=== PATIENT | male | born 1960 | race Caucasian/White ===

== ENCOUNTER → 2017-01-19 | Outpatient (REF) | payer OTHER ==
[~2017-01-19] MED LIST: /METH500TA PO; /TAMS4CA OR; /TAMS4CA PO; AMPI500C PO; ASPI81TA3 OR; ASPI81TA85 PO; AUGM875T27 PO; CIPR500T4 OR; COLA100C2 OR; FISH1000 PO; FLAG500T OR; Hydrochlorothiazide OR; LIPI20TA OR; LISI10TA4 OR; METOPROLOL PO; MILKSUS OR; MULTIVIT OR; OMEP20CA3 PO; PERC7.5T12 PO; PLAV75TA2 OR; PRAV40TA2 PO; Potassium Chloride OR; Prilosec OR; TOPR25TA PO; TYLE325T5 PO; Wellbutrin OR; ZEST20TA8 PO
== END ==
LOC: M LAB REF 12:45
PROVIDERS: ATTEND Internal Medicine
DX: Z51.81 Encounter for therapeutic drug level monitoring (principal); Z79.899 Other long term (current) drug therapy

== ENCOUNTER 2017-05-13 18:21 | Emergency (ER) | payer BC, OTHER ==
[2017-05-13] MEDS: ACETAMINOPHEN TAB 650MG DOSE (2X325MG) PO (20:15)
[2017-05-13 20:37] LABS: BASO % 0.4 % (0.0-1.0); EOS # 0.1 10^3/uL (0.0-0.50); EOS % 2.3 % (0.0-3.0); HEMATOCRIT 42.5 % (42.0-52.0); HEMOGLOBIN 14.5 g/dl (14.0-18.0); IMMATURE GRANULOCYTE % 0.6 % (0-0); MEAN CORPUSCULAR HEMOGLOBIN 30.9 pg (27.0-33.0); MEAN CORPUSCULAR HGB CONC 34.1 g/dl (32.0-36.5); MEAN CORPUSCULAR VOLUME 90.6 fl (80.0-96.0); MONO % 17.9 % (0.0-5.0); NEUTROPHILS # 3.2 10^3/uL (1.8-7.7); NEUTROPHILS % 59.8 % (36.0-66.0); PLATELET COUNT, AUTOMATED 189 10^3/uL (150-450); RED BLOOD COUNT 4.69 10^6/uL (4.30-6.10); RED CELL DISTRIBUTION WIDTH 12.7 % (11.5-14.5); WHITE BLOOD COUNT 5.3 10^3/uL (4.0-10.0)
[2017-05-13 20:52] LABS: INR 1.04; PROTHROMBIN TIME 13.7 SECONDS (12.4-14.5)
[2017-05-13 20:53] LABS: PARTIAL THROMBOPLASTIN TIME 26.3 SECONDS (26.8-37.9)
[2017-05-13 20:56] LABS: ANION GAP 4 MEQ/L (8-16); BLOOD UREA NITROGEN 15 MG/DL (7-18); CALCIUM LEVEL 8.8 MG/DL (8.5-10.1); CARBON DIOXIDE LEVEL 29 MEQ/L (21-32); CHLORIDE LEVEL 107 MEQ/L (98-107); GLOMERULAR FILTRATION RATE > 60.0 (>56); GLUCOSE, FASTING 97 MG/DL (70-100); POTASSIUM SERUM 4.4 MEQ/L (3.5-5.1); SODIUM LEVEL 140 MEQ/L (136-145)
== END 2017-05-13 22:29 | disposition home or self-care (01) ==
LOC: M ED 18:21
DX: S05.11XA Contusion of eyeball and orbital tissues, right eye, initial encounter (principal); X58.XXXA Exposure to other specified factors, initial encounter; Y92.89 Other specified places as the place of occurrence of the external cause; Z79.899 Other long term (current) drug therapy; Z79.2 Long term (current) use of antibiotics; Z86.79 Personal history of other diseases of the circulatory system
CPT/HCPCS: 70450

== ENCOUNTER 2017-05-22 08:14 | Emergency (ER) | payer BC, OTHER ==
[2017-05-22 08:53] LABS: BASO # 0.1 10^3/uL (0.0-0.2); BASO % 0.4 % (0.0-1.0); EOS % 0.3 % (0.0-3.0); HEMATOCRIT 42.8 % (42.0-52.0); HEMOGLOBIN 14.8 g/dl (14.0-18.0); IMMATURE GRANULOCYTE # 0.1 10^3/uL (0-0); LYMPH % 7.9 % (24.0-44.0); MEAN CORPUSCULAR HGB CONC 34.6 g/dl (32.0-36.5); MEAN CORPUSCULAR VOLUME 89.7 fl (80.0-96.0); MONO # 0.8 10^3/uL (0.0-0.8); MONO % 6.2 % (0.0-5.0); NEUTROPHILS # 10.3 10^3/uL (1.8-7.7); NEUTROPHILS % 84.2 % (36.0-66.0); PLATELET COUNT, AUTOMATED 189 10^3/uL (150-450); RED BLOOD COUNT 4.77 10^6/uL (4.30-6.10); RED CELL DISTRIBUTION WIDTH 12.5 % (11.5-14.5); WHITE BLOOD COUNT 12.3 10^3/uL (4.0-10.0)
[2017-05-22] MEDS: ONDANSETRON 4MG/2ML VIAL (J2405) IV (09:21)
[2017-05-22] MEDS: MORPHINE 4 MG/ML 1ML VIAL IV (09:22)
[2017-05-22] MEDS: NS 500 ML IV ×2 (09:22→10:14)
[2017-05-22 09:38] LABS: ALBUMIN 4.2 GM/DL (3.2-5.2); ALBUMIN/GLOBULIN RATIO 1.56 (1.00-1.93); ALKALINE PHOSPHATASE 99 U/L (45-117); ALT/SGPT 44 U/L (12-78); ANION GAP 6 MEQ/L (8-16); AST/SGOT 25 U/L (7-37); BILIRUBIN,DIRECT 0.1 MG/DL (0.0-0.2); BILIRUBIN,TOTAL 0.3 MG/DL (0.2-1.0); BLOOD UREA NITROGEN 19 MG/DL (7-18); CALCIUM LEVEL 8.7 MG/DL (8.5-10.1); CARBON DIOXIDE LEVEL 28 MEQ/L (21-32); CHLORIDE LEVEL 107 MEQ/L (98-107); CPK CREATINE PHOSPHOKINASE 231 U/L (39-308); GLOMERULAR FILTRATION RATE 51.4 (>56); GLUCOSE, FASTING 152 MG/DL (70-100); LIPASE 70 U/L (73-393); MB/CK RELATIVE INDEX 1.73 (< OR =4); POTASSIUM SERUM 4.6 MEQ/L (3.5-5.1); SODIUM LEVEL 141 MEQ/L (136-145); TOTAL PROTEIN 6.9 GM/DL (6.4-8.2); TROPONIN I < 0.02 NG/ML (< 0.10)
[2017-05-22] MEDS ORDERED: fentaNYL 100 MCG/2 ML INJECTION (J3010) As Ordered (09:38)
[2017-05-22] MEDS ORDERED: ISOVUE-370 76% 100ML VIAL (Q9967) As Ordered (09:39)
[2017-05-22] MEDS: fentaNYL 100 MCG/2 ML INJECTION (J3010) IV (09:45)
[2017-05-22 10:08] LABS: LACTIC ACID SEPSIS PROTOCOL 2.3 MMOL/L (0.4-2.0)
[2017-05-22 10:39] LABS: KETONE, URINE AUTO RFX TRACE mg/dL (NEGATIVE); LEUKOCYTE ESTERASE UR AUTO RFX NEGATIVE (NEGATIVE); MUCUS, URINE RFX SMALL (NEGATIVE); NITRITE, URINE AUTO RFX NEGATIVE (NEGATIVE); RBC, URINE AUTO RFX 45 /HPF (0-3); SPECIFIC GRAVITY UR AUTO RFX 1.028 (1.002-1.035); SQUAM EPITHELIAL CELL UR AURFX 0 /HPF (0-6); WBC, URINE AUTO RFX 0 /HPF (0-3)
[2017-05-22] MEDS: KETOROLAC 30 MG/ML VIAL (J1885) IV (11:22)
== END 2017-05-22 13:26 | disposition home or self-care (01) ==
LOC: M ED 08:14
DX: N20.0 Calculus of kidney (principal); S37.009A Unspecified injury of unspecified kidney, initial encounter; X58.XXXA Exposure to other specified factors, initial encounter; Y92.89 Other specified places as the place of occurrence of the external cause; I51.9 Heart disease, unspecified; Z87.442 Personal history of urinary calculi; Z87.19 Personal history of other diseases of the digestive system; Z98.890 Other specified postprocedural states
CPT/HCPCS: J2405

== ENCOUNTER 2018-12-05 07:40 | Emergency (ER) | payer OTHER, BC ==
[~2018-12-05] VITALS: Ht 170.2 cm; Wt 86.4 kg
[~2018-12-05 07:40] MED LIST changes: -/METH500TA PO; -/TAMS4CA OR; -/TAMS4CA PO; +FLOM0.4C39 OR; +FLOM0.4C39 PO; +METH1TAB40 PO; +METO-1 PO; +PERC5TAB12 PO; -TOPR25TA PO
[2018-12-05] MEDS ORDERED: ELIQ5TAB PO (07:56)
[2018-12-05] MEDS ORDERED: METO1TAB33 PO (07:56)
[2018-12-05] MEDS ORDERED: MONT10TA2 PO (07:56)
[2018-12-05] MEDS ORDERED: GABA-1171 (07:56)
[2018-12-05] MEDS ORDERED: LOSA100T50 PO (07:56)
[2018-12-05] MEDS ORDERED: HYDR12.55 PO (07:56)
[2018-12-05] MEDS ORDERED: BUPR300T34 PO (07:56)
--- NOTE | 2018-12-05 08:46 | REP ---
Left forearm two views: There is no fracture or dislocation. There are calcifications in the soft tissues posteriorly to the distal humerus. These could represent foreign bodies, calcific tendonitis or calcific bursitis. The There is soft tissue edema posterior to the distal humerus which could be post-traumatic, bursitis or inflammatory. Electronically Signed by Ajay Shea MD 12/05/2018 08:37 A
--- NOTE | 2018-12-05 08:59 | REP ---
LEFT HUMERUS: 12/05/2018. Clinical history: Trauma. Two-views show the shaft of the humerus intact. There is some degenerative changes in the inferior aspect of the AC joint. There is no subluxation or dislocation of the humeral head. Visualized elbow grossly intact. No radiopaque foreign body. Impression: 1. No fracture or other acute bony finding about the humerus. 2. AC joint arthritis noted. Electronically Signed by Prince Barrientos MD 12/05/2018 09:07 A
[2018-12-05] MEDS ORDERED: ACETAMINOPHEN 500 MG TAB PO ONE (09:15)
--- NOTE | 2018-12-05 09:34 | REP ---
Left elbow for views: The lateral view is oblique. There is no fracture or dislocation on the views presented. There are calcifications in the soft tissues posteriorly. I suspect there is edema in the soft tissues posteriorly. These findings are nonspecific and could represent bursitis or post-traumatic edema. Impression: Post traumatic edema versus bursitis posteriorly. No fracture or dislocation. Lateral view is oblique. Electronically Signed by Ajay Shea MD 12/05/2018 09:25 A
[2018-12-05] MEDS ORDERED: MORPHINE 4 MG/ML 1ML VIAL/SYRINGE (J2270) IM ONE (10:15)
[2018-12-05 10:34] LABS: HEMATOCRIT 40.2 % (42.0-52.0); HEMOGLOBIN 13.6 g/dl (13.5-17.5); MEAN CORPUSCULAR HEMOGLOBIN 30.6 pg (27.0-33.0); MEAN CORPUSCULAR HGB CONC 33.8 g/dl (32.0-36.5); MEAN CORPUSCULAR VOLUME 90.3 fl (80.0-96.0); PLATELET COUNT, AUTOMATED 205 10^3/uL (150-450); RED BLOOD COUNT 4.45 10^6/uL (4.30-6.10); WHITE BLOOD COUNT 9.6 10^3/uL (4.0-10.0)
--- NOTE | 2018-12-05 10:48 | REP ---
DEEP VENOUS ULTRASOUND LEFT UPPER EXTREMITY: REASON: Pain and swelling. TECHNIQUE: Multiple ultrasonographic images of the deep venous structures of the left upper extremity were obtained to rule out deep venous thrombosis. FINDINGS: There is no abnormal echogenic material seen in any of the visualized deep venous structures of the left upper extremity. Coaptation where applicable is appropriate throughout. Augmentation shows an expected response throughout. IMPRESSION: Negative exam. Electronically Signed by Brayden Coughlin DO 12/05/2018 12:38 P
[2018-12-05 10:49] LABS: INR 1.17; PROTHROMBIN TIME 14.6 SECONDS (11.8-14.0)
[2018-12-05 11:00] LABS: BLOOD UREA NITROGEN 20 MG/DL (7-18); CALCIUM LEVEL 8.8 MG/DL (8.5-10.1); CARBON DIOXIDE LEVEL 29 MEQ/L (21-32); CHLORIDE LEVEL 105 MEQ/L (98-107); CREATININE FOR GFR 1.22 MG/DL (0.70-1.30); GLOMERULAR FILTRATION RATE > 60.0 (>56); GLUCOSE, FASTING 102 MG/DL (70-100); POTASSIUM SERUM 4.6 MEQ/L (3.5-5.1); SODIUM LEVEL 139 MEQ/L (136-145)
[2018-12-05] MEDS ORDERED: ONDANSETRON 4 MG ORAL DISINTEGRATING TAB (Q0162 PER 1MG) PO ONE (11:00)
[2018-12-05] MEDS ORDERED: PERC5TAB12 PO (12:07)
[2018-12-05 12:08] VITALS: BP 113/82
[2018-12-20] MEDS ORDERED: TRAM50TA2 PO (08:31)
[2018-12-20] MEDS ORDERED: ASPI81TA85 PO (08:31)
[2018-12-20] MEDS ORDERED: ACET1TAB16 PO (08:31)
[2018-12-20] MEDS ORDERED: MULTCAP PO (08:31)
[2018-12-20] MEDS ORDERED: TIZA4TAB4 PO (08:31)
[2018-12-20] MEDS ORDERED: OMEP20CA4 PO (08:44)
== END 2018-12-05 12:16 | disposition home or self-care (01) ==
LOC: M ED 07:40
DX: S50.02XA Contusion of left elbow, initial encounter (principal); W19.XXXA Unspecified fall, initial encounter; Y92.149 Unspecified place in prison as the place of occurrence of the external cause; Y93.89 Activity, other specified; Y99.0 Civilian activity done for income or pay
CPT/HCPCS: 36415; 73060; 73080; 73090; 80048; 82550; 85027; 85610; 93971; 96372; 99284; J2270; Q0162

== ENCOUNTER → 2018-12-10 | Outpatient (CLI) | payer OTHER, BC ==
[~2018-12-10] MED LIST changes: +ACET1TAB16 PO; +BUPR300T92 PO; +ELIQ5TAB PO; +ENOX40IN3 SC; +GABA-1171; +HYDR12.55 PO; +LOSA100T50 PO; +METO1TAB33 PO; +MONT10TA2 PO; +MULTCAP PO; +OMEP1CAP73 PO; +TIZA4TAB4 PO; +TRAM50TA2 PO
--- NOTE | 2018-12-11 12:02 | REP ---
MRI LEFT ELBOW: TECHNIQUE: Multiple sequences in the axial, coronal and sagittal planes. The study is somewhat limited as the patient is unable to straighten the elbow and the elbow is imaged at 90 degree angle. The osseous structures demonstrate no abnormal bone marrow signal. There is no bone marrow edema or occult fracture. There does appear to be rupture of the distal triceps tendon with discontinuity distally. There is ill-defined abnormal signal posterior to the elbow joint, which is felt to represent hemosiderin from soft tissue hemorrhage, demonstrating low signal on both T1- and T2-weighted images. There is a small joint effusion. The biceps tendon is intact. Collateral ligaments are difficult to visualize as the elbow is held at a 90-degree angle but the osseous structures are well-aligned with no definite abnormal signal in the region of the collateral ligaments. There is diffuse superficial soft tissue edema. IMPRESSION: Limited exam due to patient positioning. Elbow is held at 90 degrees and could not be straightened. However, there does appear to be rupture of the distal triceps tendon with associated soft tissue hemorrhage. Biceps tendon is intact. There is no occult fracture. Triceps tendon appears retracted approximately 3 cm cephalad. Electronically Signed by Ajay Flores MD 12/12/2018 12:02 A
== END ==
LOC: M RAD 06:37
PROVIDERS: ATTEND Orthopaedic Surgery Sports Medicine
DX: M25.522 Pain in left elbow (principal)

== ENCOUNTER 2018-12-21 11:52 | Day surgery (SDC) | payer BC, OTHER ==
[~2018-12-21] VITALS: Ht 170.2 cm; Wt 88.0 kg
[~2018-12-21 11:52] MED LIST changes: +BUPR300T34 PO; -BUPR300T92 PO; -ENOX40IN3 SC; +LR 1,000 ML IV ONE; -OMEP1CAP73 PO; +OMEP20CA4 PO
[2018-12-21] MEDS ORDERED: ENOX40IN3 SC (13:10)
[2018-12-21] MEDS ORDERED: PROPOFOL 200 MG/20 ML VIAL As Ordered ONE ×2 (13:15→14:47)
[2018-12-21] MEDS ORDERED: LIDOCAINE 2% INJ 100 MG/5 ML SDV (FOR ANES.) As Ordered ONE ×2 (13:15→14:47)
[2018-12-21] MEDS ORDERED: ONDANSETRON 4MG/2ML VIAL (J2405) As Ordered ONE ×3 (13:15→16:00)
[2018-12-21] MEDS ORDERED: dexameTHASONE 4 MG/ML 1ML VIAL (J1100) As Ordered ONE ×3 (13:15→16:00)
[2018-12-21] MEDS ORDERED: MIDAZOLAM INJ 2 MG/2 ML VIAL (J2250) As Ordered ONE ×2 (13:15→14:52)
[2018-12-21] MEDS ORDERED: fentaNYL 100 MCG/2 ML INJECTION (J3010) As Ordered ONE ×4 (13:16→16:31)
[2018-12-21] MEDS ORDERED: ePHEDrine SULFATE 25 MG/5 ML(5MG/ML) SYRINGE As Ordered ONE (13:37)
[2018-12-21] MEDS ORDERED: PHENYLephrine HCL 500 MCG/5 ML (100MCG/ML) SYRINGE (J2370) As Ordered ONE (14:25)
[2018-12-21] MEDS ORDERED: ROCURONIUM BROMIDE 50 MG/5 ML VIAL As Ordered ONE (14:47)
[2018-12-21] MEDS ORDERED: BUPIVACAINE/EPIN 0.25% 30 ML VIAL As Ordered ONE (15:16)
[2018-12-21] MEDS ORDERED: ACETAMINOPHEN 1000MG 100ML IV BTL (OFIRMEV) (J0131 PER 10MG) As Ordered ONE (15:41)
[2018-12-21] MEDS ORDERED: SUGAMMADEX SODIUM 500 MG/5 ML VIAL (BRIDION) As Ordered ONE (15:54)
[2018-12-21] MEDS ORDERED: HYDROMORPHONE HCL 0.5 MG/ 0.5 ML SYRINGE (J1170 PER 1) As Ordered ONE ×2 (17:09→17:19)
[2018-12-21] MEDS: HYDROMORPHONE HCL 0.5 MG/ 0.5 ML SYRINGE (J1170 PER 1) IV PRN ×5 (17:11→17:36)
[2018-12-21] MEDS ORDERED: fentaNYL 100 MCG/2 ML INJECTION (J3010) IV PRN (17:30)
[2018-12-21] MEDS ORDERED: ONDANSETRON 4MG/2ML VIAL (J2405) IV PRN (17:30)
[2018-12-21] MEDS ORDERED: LR 1,000 ML IV SCH ×2 (17:30→18:31)
--- NOTE | 2018-12-21 17:45 | RO ---
DATE OF PROCEDURE: 12/21/2018 PREOPERATIVE DIAGNOSIS: Left triceps tendon tear POSTOPERATIVE DIAGNOSIS: Left triceps tendon tear. PLANNED PROCEDURE: Repair left triceps tendon. PROCEDURE PERFORMED: Repair left triceps tendon. SURGEON: Twan Otero MD ASSESSMENT: ANESTHETIC: General. REAL PROPERTY EVALUATOR: Dr. Lepe. OPERATIVE PREAMBLE: This 58-year-old man had a left triceps tendon injury at work. 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 We talked about the pros, cons, risks, benefits of going ahead with the operative repair. I reiterated the risks in preoperative holding and marked the left upper extremity. DESCRIPTION OF OPERATION: Patient was brought to the operating theater. They placed supine on the operating room table with a beanbag underneath them. General anesthesia was induced. 2g IV ancef administered. They were placed left lateral decubitus with an arm positioner to their right side. Beanbag was used, axillary roll was employed and all bony prominences padded. Entire upper extremity was prepped and draped in the usual sterile fashion with alcohol based prep solution and allowed to thoroughly dry. Preoperative time-out was performed to confirm the site and the patient. Limb was exsanguinated and a sterile 18-inch tourniquet was applied and inflated throughout the duration of the case at 250 mmHg. Tourniquet time was 57 minutes. Began by making a posterior workhorse incision centered over the tip of the olecranon and curved laterally to stay away from the very bony prominence tip of the olecranon. I carried this dissection down through skin and subcutaneous tissue. Triceps tendon rupture was visualized, partially adherent to soft tissues, retracted 3cm. This was released along its length and triceps tendon mobilized. A #2 FiberWire was whipstitched in a running locking [place] type stitch along the medial and lateral sides to create four suture tails at the end of the triceps. It was started approximately 2 cm proximal to the very tip of the tendon on the undersurface of that. After this whipstitching was complete then I passed two FiberLink sutures at the same level with the loops coming out proximally and superficial to the triceps tendon at the same level where the initial sutures were entering just proximal to this. I then prepared the footprint using a combination of curettes, rongeurs and the drill to create a bleeding bed for healing. I then used a #2 drill to drill two drill holes from the tip of the olecranon down distally into the ulna, aiming them slightly divergent. I then used the [employer] suture passer to pass three medial limbs through the medial hole and three lateral limbs through the lateral hole. I then drilled and tapped for a 4.75 mm Arthrex SwiveLock anchor just distal and in the middle of the two former drill holes. I then passed in a crisscross fashion one suture limb from each hole through the FiberLink loop and then passed this out distally. I performed the same thing on the other side creating a speed bridge type repair construct to recreate the [employer] footprint of the triceps tendon. I then passed all four suture limbs through the tip of the 4.75 mm biocomposite SwiveLock anchor. I inserted this into the previously made hole and tightened this down. Unfortunately, the very proximal portion of the SwiveLock anchor broke off as it was quite a tight interference fit. Approximately one and a half threads had fractured off but the repair was still very solid through range of motion at that point and the anchor could not be pulled out with vigorous force on the suture ends. In spite of this, I decided to back up the repair. I drilled and tapped just distal to this first suture anchor and then backed up the sutures with another 4.75 mm PEEK SwiveLock anchor in the same fashion. Stay suture removed and the sutures cut short. Repair was solid from 0 to over 90 degrees and appropriately tensioned the tendon back down. Subcutaneous tissues thoroughly irrigated with normal saline. This was followed by closure of subcutaneous tissues with interrupted #2-0 Vicryl sutures and skin with raya. 10 mL 0.25% Marcaine was instilled in and around the incision sites. Skin was cleaned with wet and dry dressing. Tourniquet taken down prior to the end of the case. The patient definitely did have some oozing due to his being on bridging anticoagulation. Adaptic 4 x 8 gauze and multiple ABD dressings were placed overlying the incision. A sterile 6-inch cast padding was applied in above elbow fashion down to the wrist. 5 x 30 plaster of Jaimee was then used to make a three-sided plaster of Jaimee above elbow splint with the wrist in neutral and the elbow at approximately 35 degrees of flexion. This was overwrapped with sterile 6 inch Zack bandage. The patient was placed into a sling and the splint allowed to fully harden. The patient was woken up from general anesthetic, transferred off the operating table and taken to postanesthetic care unit ion stable condition. All sponge, needle, and instrument counts were correct. No complications aside from the broken tip of the first anchor. PLAN The patient is to be discharged home according to day surgery criteria as long as they are comfortable. Followup in clinic in 3 days time. Prescription has been electronically sent into their pharmacy of choice. I would like them to elevate it and rest it for now. I will prescribe them a hinged elbow brace so hopefully they can pick that up in the next 2 weeks. 1-2 weeks of immobilization followed by slowly progressive PROM over 6-8 weeks. I look forward to seeing him in followup. REMEDIOS
[2018-12-21] MEDS: oxyCODONE 5MG TAB PO PRN ×2 (17:53→18:36)
[2018-12-21] MEDS ORDERED: oxyCODONE 5MG TAB As Ordered ONE (18:35)
[2018-12-21 19:25] VITALS: BP 136/90
== END 2018-12-21 19:37 | disposition home or self-care (01) ==
LOC: M SDC 11:52
PROVIDERS: ATTEND Orthopaedic Surgery Sports Medicine
DX: S46.312A Strain of muscle, fascia and tendon of triceps, left arm, initial encounter (principal); Y04.0XXA Assault by unarmed brawl or fight, initial encounter; Y92.149 Unspecified place in prison as the place of occurrence of the external cause; Y99.0 Civilian activity done for income or pay; Y93.89 Activity, other specified; I10 Essential (primary) hypertension; Z95.2 Presence of prosthetic heart valve; I71.2 Thoracic aortic aneurysm, without rupture; I48.0 Paroxysmal atrial fibrillation; E78.00 Pure hypercholesterolemia, unspecified; K57.92 Diverticulitis of intestine, part unspecified, without perforation or abscess without bleeding; G47.33 Obstructive sleep apnea (adult) (pediatric); Z79.01 Long term (current) use of anticoagulants; F41.9 Anxiety disorder, unspecified; Z79.899 Other long term (current) drug therapy
CPT/HCPCS: 24341; C1713; J0131; J0690; J1100; J2250; J2405; J3010

== ENCOUNTER → 2019-05-29 | Outpatient (REF) | payer OTHER ==
[~2019-05-29] MED LIST changes: -BUPR300T34 PO; +BUPR300T92 PO; +ENOX40IN3 SC; -LR 1,000 ML IV ONE; -MONT10TA2 PO; +MONT10TA4 PO; +OMEP1CAP73 PO; -OMEP20CA4 PO
== END ==
LOC: M LAB REF 12:33
PROVIDERS: ATTEND Nurse Practitioner Adult Health
DX: I48.0 Paroxysmal atrial fibrillation (principal)

== ENCOUNTER → 2019-09-23 | Outpatient (CLI) | payer OTHER | LOC: M LABSMTC 12:31 | PROVIDERS: ATTEND Anesthesiology | DX: Z03.818 Encounter for observation for suspected exposure to other biological agents ruled out (principal); Z11.59 Encounter for screening for other viral diseases | CPT/HCPCS: C9803; U0003 ==

== ENCOUNTER 2019-09-26 13:35 | Day surgery (SDC) | payer BC, OTHER ==
[~2019-09-26] VITALS: Ht 170.2 cm; Wt 86.6 kg
[~2019-09-26 13:35] MED LIST changes: +LIDOCAINE 1% MDV 20ML VIAL SQ PRN; +LR 1,000 ML IV ONE
[2019-09-26] MEDS ORDERED: fentaNYL 100 MCG/2 ML INJECTION (J3010) As Ordered ONE (15:20)
[2019-09-26] MEDS ORDERED: LIDOCAINE 2% 100MG/5ML SDV (FOR ANES.) As Ordered ONE (15:21)
[2019-09-26] MEDS ORDERED: propofoL 200 MG/20 ML VIAL As Ordered ONE (15:21)
[2019-09-26 16:15] VITALS: BP 122/86
--- NOTE | 2019-09-26 17:47 | RO ---
DATE OF PROCEDURE: 09/26/2019 PREPROCEDURE DIAGNOSIS: Atrial fibrillation/atrial flutter. POSTPROCEDURE DIAGNOSIS: PROCEDURE: Direct current (DC) cardioversion. SURGEON: Dr. Twila Brewer MANDREL CLEANER: ANESTHESIA: ANESTHESIOLOGY: Carmela BRIEF HISTORY: Mr. Estrada is a 59-year-old man with a history of aortic valve replacement with bioprosthesis who has had problems with paroxysmal atrial fibrillation/flutter for several years. He actually underwent atrial fibrillation ablation by Dr. Polo in [facility] in [place] 2 weeks ago, but 2 days after the procedure started experiencing palpitations and when I saw him in the office 3 days ago, he was in atrial flutter with 2:1 conduction and ventricular rate over 160 beats per minute. Because he was so tachycardiac, I felt that it was appropriate to proceed with cardioversion even though the arrhythmia was relatively well tolerated. I discussed the rationale with the patient and his . He did sign appropriate consent. In the interim, I increased the dose of metoprolol from 100 mg daily to 100 mg twice a day, and the patient reported that heart rate actually did slow somewhat. PROCEDURE NOTE: The patient presented in fasting condition. After appropriate time-out was taken and all appropriate monitors were applied, anesthesiology administered sedation. He was then cardioverted with defibrillator patches in anterior position in synchronized mode with 200 joules of energy. Single shock led to gnosticism of sinus mechanism. There were no post conversion pauses. At the time of my dictation, 12-lead EKG is pending. There were no immediate complications. The patient will be seen in followup next week. In the interim, we will continue his chronic medications.
--- NOTE | 2019-09-26 21:16 | ECGEPIP ---
[facility] Test Date: 2019-09-26 Pat Name: TERRENCE TUCKER Department: Room: - Gender: Male Relationship Mgr: MELODY : 1960 Requested By: Twila Brewer Order Number: [id number] Reading MD: Willis Moy Measurements Intervals [place] Rate: 105 P: GA: 0 QRS: 4 QRSD: 85 T: -5 QT: 370 QTc: 490 Interpretive Statements ATRIAL FLUTTER/TACHYCARDIA WITH RAPID VENTRICULAR RESPONSE LEFT VENTRICULAR HYPERTROPHY AND ST-T CHANGE Similar to tracing done 05-22-17 with slightly more notable lateral changes Electronically Signed on 09-26-2019 21:16:29 EDT by Willis Moy
--- NOTE | 2019-09-26 21:26 | ECGEPIP ---
[facility] Test Date: 2019-09-26 Pat Name: TERRENCE TUCKER Department: Room: - Gender: Male Public Relations Manager: : 1960 Requested By: Twila Brewer Order Number: [id number] Reading MD: Willis Moy Measurements Intervals [place] Rate: 66 P: 48 ND: 185 QRS: 0 QRSD: 85 T: 16 QT: 421 QTc: 443 Interpretive Statements SINUS RHYTHM WITH OCCASIONAL SUPRAVENTRICULAR PREMATURE COMPLEXES POSSIBLE LEFT ATRIAL ENLARGEMENT LEFT VENTRICULAR HYPERTROPHY AND ST-T CHANGE Previous tracing done 14:10 on same date was atrial flutter with rvr Electronically Signed on 09-26-2019 21:26:09 EDT by Willis Moy
== END 2019-09-26 17:00 | disposition home or self-care (01) ==
LOC: M SDC 13:35
PROVIDERS: ATTEND Internal Medicine Cardiovascular Disease
DX: I48.91 Unspecified atrial fibrillation (principal); I48.92 Unspecified atrial flutter; E78.5 Hyperlipidemia, unspecified; I10 Essential (primary) hypertension; Z79.01 Long term (current) use of anticoagulants; Z79.899 Other long term (current) drug therapy
CPT/HCPCS: 92960; 93005; J3010

== ENCOUNTER → 2020-05-24 | Outpatient (CLI) | payer BC, OTHER ==
[~2020-05-24] MED LIST changes: +ASPI81TA86 PO; -LIDOCAINE 1% MDV 20ML VIAL SQ PRN; -LR 1,000 ML IV ONE; +MONT10TA10 PO; -MONT10TA4 PO
== END ==
LOC: M LABSMTC 08:00
PROVIDERS: ATTEND Internal Medicine Cardiovascular Disease
DX: Z01.812 Encounter for preprocedural laboratory examination (principal); Z20.822 Contact with and (suspected) exposure to COVID-19; I48.0 Paroxysmal atrial fibrillation

== ENCOUNTER → 2020-07-28 | Outpatient (CLI) | payer BC, OTHER ==
--- NOTE | 2020-07-29 02:08 | REP ---
INDICATION: ACUTE DIASTOLIC (CONGESTIVE) HEART FAILURE COMPARISON: 08/29/2018 TECHNIQUE: PA and lateral. FINDINGS: The mediastinum demonstrates prior sternotomy and cardiac valve repair. Cardiac silhouette is grossly within normal limits. Increased elevation to the right hemidiaphragm is suggested. Aerated lung polanco are relatively clear and without obvious consolidation, effusion, or pneumothorax. Skeletal structures intact. IMPRESSION: 1. Increased elevation to the right hemidiaphragm. 2. No obvious acute cardiopulmonary process. If the patient remains symptomatic consider chest CT for further investigation. <Electronically signed by Reji Ramos > 07/29/20 [id number]
== END ==
LOC: M RAD 17:06
PROVIDERS: ATTEND Internal Medicine Cardiovascular Disease
DX: I50.31 Acute diastolic (congestive) heart failure (principal)

== ENCOUNTER → 2020-10-14 | Outpatient (CLI) | payer BC, OTHER ==
--- NOTE | 2020-10-14 16:00 | REP ---
INDICATION: PLEURAL EFFUSION COMPARISON: 07/28/2020 TECHNIQUE: PA and lateral. FINDINGS: Mediastinum and cardiac silhouette are stable. Cardiomegaly with evidence for prior sternotomy and aortic valve repair again noted. Elevation to the right hemidiaphragm noted. Lung polanco are clear and without acute consolidation, effusion, or pneumothorax. Skeletal structures intact. IMPRESSION: No acute cardiopulmonary process. <Electronically signed by Reji Ramos > 10/14/20 [id number]
== END ==
LOC: M WUC 15:31
PROVIDERS: ATTEND Internal Medicine
DX: J90 Pleural effusion, not elsewhere classified (principal)

== ENCOUNTER → 2022-12-05 | Outpatient (CLI) | payer BC, OTHER ==
[~2022-12-05] MED LIST changes: -ACET1TAB16 PO; +ACET300T48 PO; +LOSA100T46 PO; -LOSA100T50 PO; -MONT10TA10 PO; +MONT10TA97 PO; +TIZA10TA PO; -TIZA4TAB4 PO
[2022-12-05 16:47] LABS: HEMATOCRIT 43.6 % (42.0-52.0); MEAN CORPUSCULAR HEMOGLOBIN 30.2 pg (27.0-33.0); MEAN CORPUSCULAR HGB CONC 32.1 g/dl (32.0-36.5); PLATELET COUNT, AUTOMATED 213 10^3/uL (150-450); RED BLOOD COUNT 4.64 10^6/uL (4.30-6.10); WHITE BLOOD COUNT 6.8 10^3/uL (4.0-10.0)
[2022-12-05 17:17] LABS: ALBUMIN 3.8 G/DL (3.2-5.2); ALKALINE PHOSPHATASE 93 U/L (46-116); ALT/SGPT 31 U/L (7.0-40); AST/SGOT 19 U/L (<34); BILIRUBIN,TOTAL 0.4 MG/DL (0.3-1.2); BLOOD UREA NITROGEN 14 MG/DL (9-23); CARBON DIOXIDE LEVEL 31 MMOL/L (20-31); CHLORIDE LEVEL 103 MMOL/L (98-107); CHOLESTEROL LEVEL 142 MG/DL (<200); CHOLESTEROL RISK RATIO 3.01 (<5); CREATININE FOR GFR 1.14 MG/DL (0.70-1.30); GLOMERULAR FILTRATION RATE > 60.0 (>49); GLUCOSE, FASTING 103 MG/DL (74-106); HDL CHOLESTEROL 47.1 MG/DL (>40); LDL CHOLESTEROL 68.1 MG/DL (<100); NON-HDL-C 94.9 MG/DL; POTASSIUM SERUM 4.2 MMOL/L (3.5-5.1); SODIUM LEVEL 142 MMOL/L (136-145); TOTAL PROTEIN 6.5 G/DL (5.7-8.2); TRIGLYCERIDES LEVEL 134 MG/DL (<150)
[2022-12-05 17:21] LABS: HEMOGLOBIN A1c 5.8 % (4.0-6.0)
== END ==
LOC: M WUC 11:19
PROVIDERS: ATTEND Internal Medicine
DX: E78.5 Hyperlipidemia, unspecified (principal); R73.01 Impaired fasting glucose; I48.91 Unspecified atrial fibrillation

== ENCOUNTER → 2023-07-03 | Outpatient (REF) | payer BC, OTHER ==
[2023-07-03 19:33] LABS: BASO # 0.1 10^3/uL (0.0-0.2); BASO % 0.7 % (0.0-1.0); EOS # 0.2 10^3/uL (0.0-0.5); EOS % 2.5 % (0.0-3.0); HEMATOCRIT 44.7 % (42.0-52.0); HEMOGLOBIN 14.6 g/dl (13.5-17.5); LYMPH # 1.4 10^3/uL (1.5-5.0); LYMPH % 18.7 % (24.0-44.0); MEAN CORPUSCULAR HEMOGLOBIN 30.2 pg (27.0-33.0); MEAN CORPUSCULAR HGB CONC 32.7 g/dl (32.0-36.5); MEAN CORPUSCULAR VOLUME 92.5 fl (80.0-96.0); MONO # 0.8 10^3/uL (0.0-0.8); MONO % 10.9 % (2.0-8.0); NEUTROPHILS # 4.9 10^3/uL (1.5-8.5); NEUTROPHILS % 66.5 % (36.0-66.0); PLATELET COUNT, AUTOMATED 250 10^3/uL (150-450); RED BLOOD COUNT 4.83 10^6/uL (4.30-6.10); WHITE BLOOD COUNT 7.3 10^3/uL (4.0-10.0)
[2023-07-03 19:55] LABS: ALBUMIN 4.1 G/DL (3.2-5.2); ALKALINE PHOSPHATASE 98 U/L (46-116); ALT/SGPT 20 U/L (7.0-40); AST/SGOT 17 U/L (<34); BILIRUBIN,TOTAL 0.3 MG/DL (0.3-1.2); BLOOD UREA NITROGEN 17 MG/DL (9-23); CALCIUM LEVEL 9.3 MG/DL (8.3-10.6); CARBON DIOXIDE LEVEL 33 MMOL/L (20-31); CHLORIDE LEVEL 103 MMOL/L (98-107); CHOLESTEROL LEVEL 126 MG/DL (<200); CREATININE FOR GFR 1.18 MG/DL (0.70-1.30); GLOMERULAR FILTRATION RATE > 60.0 (>49); GLUCOSE, FASTING 96 MG/DL (74-106); LDL CHOLESTEROL 62.6 MG/DL (<100); POTASSIUM SERUM 4.6 MMOL/L (3.5-5.1); SODIUM LEVEL 140 MMOL/L (136-145); TRIGLYCERIDES LEVEL 107 MG/DL (<150)
[2023-07-03 20:02] LABS: HEMOGLOBIN A1c 5.6 % (4.0-6.0)
== END ==
LOC: M LAB REF 18:57
PROVIDERS: ATTEND Internal Medicine
DX: I10 Essential (primary) hypertension (principal); E78.5 Hyperlipidemia, unspecified; R73.01 Impaired fasting glucose

== ENCOUNTER 2023-07-21 14:21 | Observation (INO) | payer BC, OTHER ==
[~2023-07-21] VITALS: Ht 170.2 cm; Wt 85.9 kg
[2023-07-21] MEDS ORDERED: XARE20TA PO (14:31)
[2023-07-21 17:17] LABS: BASO # 0.1 10^3/uL (0.0-0.2); BASO % 0.6 % (0.0-1.0); EOS # 0.2 10^3/uL (0.0-0.5); EOS % 2.8 % (0.0-3.0); HEMATOCRIT 39.4 % (42.0-52.0); HEMOGLOBIN 12.7 g/dl (13.5-17.5); LYMPH # 1.6 10^3/uL (1.5-5.0); LYMPH % 19.1 % (24.0-44.0); MEAN CORPUSCULAR HEMOGLOBIN 29.8 pg (27.0-33.0); MEAN CORPUSCULAR HGB CONC 32.2 g/dl (32.0-36.5); MEAN CORPUSCULAR VOLUME 92.5 fl (80.0-96.0); MONO % 12.2 % (2.0-8.0); NEUTROPHILS # 5.5 10^3/uL (1.5-8.5); NEUTROPHILS % 64.7 % (36.0-66.0); PLATELET COUNT, AUTOMATED 190 10^3/uL (150-450); RED BLOOD COUNT 4.26 10^6/uL (4.30-6.10); WHITE BLOOD COUNT 8.4 10^3/uL (4.0-10.0)
[2023-07-21 17:39] LABS: CALCIUM LEVEL 8.9 MG/DL (8.3-10.6); CK-MB VALUE MASS 4.2 NG/ML (<3.6); CREATININE FOR GFR 1.33 MG/DL (0.70-1.30); GLOMERULAR FILTRATION RATE 57.8 (>49); MB/CK RELATIVE INDEX 2.15 (< OR =4); POTASSIUM SERUM 4.8 MMOL/L (3.5-5.1)
[2023-07-21] MEDS: NS 1,000 ML IV SCH ×2 (18:21→20:40)
[2023-07-21 19:18] LABS: ETHYL ALCOHOL (ETHANOL) 0.004 % (0.000-0.010)
[2023-07-21 19:20] LABS: ALBUMIN 3.8 G/DL (3.2-5.2); ALKALINE PHOSPHATASE 89 U/L (46-116); ALT/SGPT 29 U/L (7.0-40); AST/SGOT 21 U/L (<34); BILIRUBIN,DIRECT 0.1 MG/DL (<0.4); BILIRUBIN,TOTAL 0.3 MG/DL (0.3-1.2); BLOOD UREA NITROGEN 16 MG/DL (9-23); CALCIUM LEVEL 8.7 MG/DL (8.3-10.6); CARBON DIOXIDE LEVEL 32 MMOL/L (20-31); CHLORIDE LEVEL 102 MMOL/L (98-107); CPK CREATINE PHOSPHOKINASE 185 U/L (46-171); CREATININE FOR GFR 1.31 MG/DL (0.70-1.30); GLOMERULAR FILTRATION RATE 58.8 (>49); GLUCOSE, FASTING 81 MG/DL (74-106); POTASSIUM SERUM 4.8 MMOL/L (3.5-5.1); SALICYLATE LEVEL < 3.0 MG/DL (<30); SODIUM LEVEL 140 MMOL/L (136-145); TOTAL PROTEIN 6.3 G/DL (5.7-8.2)
[2023-07-21 19:21] LABS: CK-MB VALUE MASS 3.3 NG/ML (<3.6); MB/CK RELATIVE INDEX 1.78 (< OR =4)
[2023-07-21 19:25] LABS: THYROID STIMULATING HORMONE 1.116 uIU/ML (0.55-4.78)
[2023-07-21] MEDS ORDERED: HYDR-643 PO (19:45)
[2023-07-21] MEDS ORDERED: TRAZ-252 PO (19:45)
[2023-07-21] MEDS ORDERED: ASPI-226 PO (19:45)
[2023-07-21] MEDS ORDERED: DIPH-435 PO (19:45)
[2023-07-21] MEDS ORDERED: DULO1CAP6 PO (19:45)
[2023-07-21] MEDS ORDERED: GABA600T4 PO (19:45)
[2023-07-21] MEDS ORDERED: SPIR-10 PO (19:45)
[2023-07-21] MEDS ORDERED: HOME MED LIST COMPLETE! XX SCH (19:50)
[2023-07-21] MEDS ORDERED: MAALOX 30 ML SUSP *UDC PO PRN (20:05)
[2023-07-21 20:15] LABS: BASO % 0.5 % (0.0-1.0); EOS # 0.2 10^3/uL (0.0-0.5); EOS % 2.8 % (0.0-3.0); HEMATOCRIT 37.4 % (42.0-52.0); HEMOGLOBIN 12.3 g/dl (13.5-17.5); LYMPH # 1.6 10^3/uL (1.5-5.0); LYMPH % 20.4 % (24.0-44.0); MEAN CORPUSCULAR HEMOGLOBIN 30.1 pg (27.0-33.0); MEAN CORPUSCULAR HGB CONC 32.9 g/dl (32.0-36.5); MEAN CORPUSCULAR VOLUME 91.4 fl (80.0-96.0); MONO # 0.8 10^3/uL (0.0-0.8); MONO % 10.6 % (2.0-8.0); NEUTROPHILS # 5.2 10^3/uL (1.5-8.5); NEUTROPHILS % 65.1 % (36.0-66.0); PLATELET COUNT, AUTOMATED 159 10^3/uL (150-450); RED BLOOD COUNT 4.09 10^6/uL (4.30-6.10); WHITE BLOOD COUNT 7.9 10^3/uL (4.0-10.0)
[2023-07-21] MEDS: DOCUSATE SODIUM 100MG CAPSULE PO SCH (20:41)
[2023-07-21] MEDS: GABAPENTIN 300 MG CAP PO SCH (20:41)
[2023-07-21] MEDS: DULoxetine 30MG CAPSULE (CYMBALTA) PO SCH (20:41)
[2023-07-21] MEDS: PRAVASTATIN 20 MG TAB PO SCH (20:41)
[2023-07-21] MEDS: MONTELUKAST 10 MG TAB PO SCH (20:41)
[2023-07-21] MEDS: OMEPRAZOLE 20MG CAP PO SCH (20:42)
[2023-07-21] MEDS: traZODone 50 MG TAB PO SCH (20:42)
[2023-07-21] MEDS: RIVAROXABAN 20MG TAB (XARELTO) PO SCH (20:42)
[2023-07-22 08:48] LABS: ALBUMIN 3.2 G/DL (3.2-5.2); ALKALINE PHOSPHATASE 95 U/L (46-116); ALT/SGPT 25 U/L (7.0-40); AST/SGOT 15 U/L (<34); BILIRUBIN,TOTAL 0.2 MG/DL (0.3-1.2); BLOOD UREA NITROGEN 18 MG/DL (9-23); CALCIUM LEVEL 8.4 MG/DL (8.3-10.6); CARBON DIOXIDE LEVEL 30 MMOL/L (20-31); CHLORIDE LEVEL 106 MMOL/L (98-107); CREATININE FOR GFR 1.21 MG/DL (0.70-1.30); GLOMERULAR FILTRATION RATE > 60.0 (>49); GLUCOSE, FASTING 146 MG/DL (74-106); POTASSIUM SERUM 4.4 MMOL/L (3.5-5.1); SODIUM LEVEL 142 MMOL/L (136-145); TOTAL PROTEIN 5.4 G/DL (5.7-8.2)
[2023-07-22] MEDS: ASPIRIN 81MG ENTERIC TABLET PO SCH (08:48)
[2023-07-22] MEDS: SPIRONOLACTONE 25 MG TAB PO SCH (08:48)
[2023-07-22 09:34] VITALS: BP 122/68; TEMP 97.6; O2SAT 98
[2023-07-22 11:51] LABS: FREE T4 0.71 NG/DL (0.89-1.76)
[2023-07-22 11:53] LABS: FREE T3 3.2 PG/ML (2.3-4.2)
[2023-07-22 12:00] VITALS: BP 122/71; TEMP 98; O2SAT 98
[2023-07-22 16:35] VITALS: BP 127/80; TEMP 97.4; O2SAT 98
[2023-07-22 20:00] VITALS: BP 114/72; TEMP 97; O2SAT 94
[2023-07-22] MEDS: GABAPENTIN 400MG CAP PO SCH (20:10)
[2023-07-22] MEDS: ACETAMINOPHEN TAB 650MG DOSE (2X325MG) PO PRN (20:11)
[2023-07-22] MEDS: traZODone 25MG PER 1/2 TABLET PO PRN (21:45)
[2023-07-22 23:14] VITALS: BP 115/75; TEMP 97.2; O2SAT 97
[2023-07-23 03:11] VITALS: BP 122/61; TEMP 97; O2SAT 96
[2023-07-23 06:28] LABS: BLOOD UREA NITROGEN 14 MG/DL (9-23); CALCIUM LEVEL 8.6 MG/DL (8.3-10.6); CARBON DIOXIDE LEVEL 34 MMOL/L (20-31); CHLORIDE LEVEL 106 MMOL/L (98-107); CREATININE FOR GFR 1.09 MG/DL (0.70-1.30); GLOMERULAR FILTRATION RATE > 60.0 (>49); GLUCOSE, FASTING 112 MG/DL (74-106); POTASSIUM SERUM 4.1 MMOL/L (3.5-5.1); SODIUM LEVEL 143 MMOL/L (136-145)
[2023-07-23 08:29] VITALS: BP 141/83; TEMP 96.8; O2SAT 97
== END 2023-07-23 10:01 | disposition home or self-care (01) ==
LOC: M ED 14:21 → M ED INP 14:22 → M PCU 07-22 09:17
PROVIDERS: ADMIT Preventive Medicine Undersea and Hyperbaric Medicine; ATTEND Preventive Medicine Undersea and Hyperbaric Medicine
DX: N17.9 Acute kidney failure, unspecified (principal); R00.1 Bradycardia, unspecified; I48.0 Paroxysmal atrial fibrillation; Z79.01 Long term (current) use of anticoagulants; R55 Syncope and collapse; R42 Dizziness and giddiness; I50.33 Acute on chronic diastolic (congestive) heart failure; E87.1 Hypo-osmolality and hyponatremia; I27.0 Primary pulmonary hypertension; Z95.2 Presence of prosthetic heart valve; I34.0 Nonrheumatic mitral (valve) insufficiency; I10 Essential (primary) hypertension; F32.A Depression, unspecified; K21.9 Gastro-esophageal reflux disease without esophagitis; Z79.82 Long term (current) use of aspirin; Z79.899 Other long term (current) drug therapy; J30.2 Other seasonal allergic rhinitis

== ENCOUNTER → 2023-08-14 | Outpatient (REF) | payer BC ==
[~2023-08-14] MED LIST changes: +ASPI-226 PO; +DIPH-435 PO; +DULO1CAP6 PO; +GABA600T4 PO; +HYDR-643 PO; +SPIR-10 PO; +TRAZ-252 PO; +XARE20TA PO
== END ==
LOC: M LABWUC 17:38
PROVIDERS: ATTEND Nurse Practitioner Family
DX: Z12.5 Encounter for screening for malignant neoplasm of prostate (principal)

== ENCOUNTER → 2023-08-29 | Outpatient (CLI) | payer BC ==
[~2023-08-29] MED LIST changes: +BUPR-597 PO; -BUPR300T92 PO
== END ==
LOC: M RAD 14:17
PROVIDERS: ATTEND Nurse Practitioner Family
DX: Z87.438 Personal history of other diseases of male genital organs (principal)

== ENCOUNTER → 2023-10-24 | Outpatient (CLI) | payer BC ==
[~2023-10-24] MED LIST changes: +OMEG10002 PO; +OXYB10TA23 PO
[2023-10-24 16:13] LABS: HEMATOCRIT 44.8 % (42.0-52.0); HEMOGLOBIN 14.6 g/dl (13.5-17.5); MEAN CORPUSCULAR HEMOGLOBIN 29.9 pg (27.0-33.0); MEAN CORPUSCULAR HGB CONC 32.6 g/dl (32.0-36.5); MEAN CORPUSCULAR VOLUME 91.6 fl (80.0-96.0); PLATELET COUNT, AUTOMATED 309 10^3/uL (150-450); RED BLOOD COUNT 4.89 10^6/uL (4.30-6.10); WHITE BLOOD COUNT 13.4 10^3/uL (4.0-10.0)
[2023-10-24 16:26] LABS: INR 1.4; PARTIAL THROMBOPLASTIN TIME 25.7 SECONDS (24.8-34.2); PROTHROMBIN TIME 16.8 SECONDS (12.5-14.5)
[2023-10-24 16:56] LABS: BLOOD UREA NITROGEN 22 MG/DL (9-23); CALCIUM LEVEL 9.7 MG/DL (8.3-10.6); CARBON DIOXIDE LEVEL 30 MMOL/L (20-31); CHLORIDE LEVEL 101 MMOL/L (98-107); CREATININE FOR GFR 1.17 MG/DL (0.70-1.30); GLOMERULAR FILTRATION RATE > 60.0 (>49); GLUCOSE, FASTING 108 MG/DL (74-106); POTASSIUM SERUM 4.4 MMOL/L (3.5-5.1); SODIUM LEVEL 138 MMOL/L (136-145)
== END ==
LOC: M WUC 13:27
PROVIDERS: ATTEND Nurse Practitioner Family
DX: Z01.818 Encounter for other preprocedural examination (principal)

== ENCOUNTER 2023-10-30 07:34 | Day surgery (SDC) | payer BC ==
[~2023-10-30] VITALS: Ht 170.2 cm; Wt 83.6 kg
[~2023-10-30 07:34] MED LIST changes: +ACETAMINOPHEN 1000MG 100ML IV BAG As Ordered ONE; +LIDOCAINE 2% 100MG/5ML SDV (FOR ANES.) As Ordered ONE; +MIDAZOLAM INJ 2MG/2ML VIAL As Ordered ONE; +fentaNYL 100 MCG/2 ML INJECTION As Ordered ONE; +propofoL 200 MG/20 ML VIAL As Ordered ONE
[2023-10-30] MEDS ORDERED: LR 1,000 ML IV SCH ×2 (08:55→11:20)
[2023-10-30] MEDS ORDERED: BACITRACIN OINTMENT 30GM TUBE As Ordered ONE (09:09)
[2023-10-30] MEDS: ceFAZolin SOD 2 GM in IV 1 EA IV ONE (09:31)
[2023-10-30] MEDS ORDERED: LABETALOL 100MG/20ML VIAL As Ordered ONE (09:45)
[2023-10-30] MEDS: LIDOCAINE 1% SDV 30ML VIAL As Ordered ONE (09:58)
[2023-10-30] MEDS ORDERED: ONDANSETRON 4MG 2ML VIAL As Ordered ONE (10:00)
[2023-10-30] MEDS ORDERED: HYDROmorphone HCL 2MG/ML 1ML VIAL As Ordered ONE (10:32)
[2023-10-30] MEDS ORDERED: fentaNYL 100 MCG/2 ML INJECTION IV PRN (11:20)
[2023-10-30] MEDS ORDERED: ONDANSETRON 4MG 2ML VIAL IV PRN (11:20)
[2023-10-30] MEDS ORDERED: OXYC1TAB23 PO (11:39)
[2023-10-30] MEDS ORDERED: CEPH500C PO (11:39)
[2023-10-30 12:25] VITALS: BP 166/86; TEMP 97.2; O2SAT 96
[2023-10-30] MEDS ORDERED: PERCOCET 5MG/325MG TAB PO PRN (12:45)
== END 2023-10-30 13:06 | disposition home or self-care (01) ==
LOC: M SDC 07:34
PROVIDERS: ATTEND Urology
DX: N43.3 Hydrocele, unspecified (principal); I48.91 Unspecified atrial fibrillation; I10 Essential (primary) hypertension; E78.5 Hyperlipidemia, unspecified; K21.9 Gastro-esophageal reflux disease without esophagitis; Z95.2 Presence of prosthetic heart valve; Z79.899 Other long term (current) drug therapy; Z79.01 Long term (current) use of anticoagulants; Z86.79 Personal history of other diseases of the circulatory system
CPT/HCPCS: 55040; 88302; J0131; J0665; J0690; J1100; J1170; J1920; J2250; J2405; J3010

== ENCOUNTER → 2024-01-03 | Outpatient (CLI) | payer BC ==
[~2024-01-03] MED LIST changes: -ACETAMINOPHEN 1000MG 100ML IV BAG As Ordered ONE; +CEPH500C PO; +GABA-1490 PO; -GABA600T4 PO; -LIDOCAINE 2% 100MG/5ML SDV (FOR ANES.) As Ordered ONE; +LOPR1TAB6 PO; -MIDAZOLAM INJ 2MG/2ML VIAL As Ordered ONE; +OMEP-173 PO; +OXYC1TAB23 PO; +THERTAB52 PO; -fentaNYL 100 MCG/2 ML INJECTION As Ordered ONE; -propofoL 200 MG/20 ML VIAL As Ordered ONE
[2024-01-03 18:36] LABS: BASO % 0.6 % (0.0-1.0); EOS # 0.2 10^3/uL (0.0-0.5); EOS % 2.4 % (0.0-3.0); HEMATOCRIT 39.2 % (42.0-52.0); HEMOGLOBIN 12.7 g/dl (13.5-17.5); LYMPH # 1.2 10^3/uL (1.5-5.0); LYMPH % 19.3 % (24.0-44.0); MEAN CORPUSCULAR HEMOGLOBIN 29.9 pg (27.0-33.0); MEAN CORPUSCULAR HGB CONC 32.4 g/dl (32.0-36.5); MEAN CORPUSCULAR VOLUME 92.2 fl (80.0-96.0); MONO # 0.9 10^3/uL (0.0-0.8); MONO % 13.8 % (2.0-8.0); NEUTROPHILS % 63.4 % (36.0-66.0); PLATELET COUNT, AUTOMATED 203 10^3/uL (150-450); RED BLOOD COUNT 4.25 10^6/uL (4.30-6.10); WHITE BLOOD COUNT 6.2 10^3/uL (4.0-10.0)
[2024-01-03 19:07] LABS: ALBUMIN 3.8 G/DL (3.2-5.2); ALKALINE PHOSPHATASE 102 U/L (46-116); ALT/SGPT 37 U/L (7.0-40); AST/SGOT 31 U/L (<34); BILIRUBIN,TOTAL 0.2 MG/DL (0.3-1.2); BLOOD UREA NITROGEN 20 MG/DL (9-23); CALCIUM LEVEL 9.6 MG/DL (8.3-10.6); CARBON DIOXIDE LEVEL 30 MMOL/L (20-31); CHLORIDE LEVEL 108 MMOL/L (98-107); CHOLESTEROL LEVEL 145 MG/DL (<200); CHOLESTEROL RISK RATIO 3.37 (<5); CREATININE FOR GFR 1.13 MG/DL (0.70-1.30); GLOMERULAR FILTRATION RATE > 60.0 (>49); GLUCOSE, FASTING 103 MG/DL (74-106); LDL CHOLESTEROL 78.6 MG/DL (<100); POTASSIUM SERUM 4.6 MMOL/L (3.5-5.1); SODIUM LEVEL 139 MMOL/L (136-145); TOTAL PROTEIN 6.7 G/DL (5.7-8.2); TRIGLYCERIDES LEVEL 117 MG/DL (<150)
== END ==
LOC: M WUC 13:21
PROVIDERS: ATTEND Internal Medicine
DX: I48.91 Unspecified atrial fibrillation (principal); E78.5 Hyperlipidemia, unspecified

== ENCOUNTER 2024-02-28 08:28 | Day surgery (SDC) | payer BC ==
[~2024-02-28] VITALS: Ht 170.2 cm; Wt 84.2 kg
[~2024-02-28 08:28] MED LIST changes: +NS 1,000 ML IV ONE; +OXYB15TA14 PO; +TERB250T91 PO
[2024-02-28] MEDS ORDERED: fentaNYL 100 MCG/2 ML INJECTION As Ordered ONE (09:26)
[2024-02-28] MEDS ORDERED: LIDOCAINE 2% 100MG/5ML SDV (FOR ANES.) As Ordered ONE (09:26)
[2024-02-28] MEDS ORDERED: propofoL 200 MG/20 ML VIAL As Ordered ONE (09:26)
[2024-02-28 09:54] VITALS: TEMP 97.4
[2024-02-28 10:19] VITALS: BP 143/74; O2SAT 100
== END 2024-02-28 10:31 | disposition home or self-care (01) ==
LOC: M OPP 08:28
PROVIDERS: ATTEND Internal Medicine Gastroenterology
DX: Z12.11 Encounter for screening for malignant neoplasm of colon (principal); K57.30 Diverticulosis of large intestine without perforation or abscess without bleeding; K64.0 First degree hemorrhoids; R12 Heartburn; K21.9 Gastro-esophageal reflux disease without esophagitis; Z80.0 Family history of malignant neoplasm of digestive organs; I48.91 Unspecified atrial fibrillation; I10 Essential (primary) hypertension; E78.00 Pure hypercholesterolemia, unspecified; Z79.899 Other long term (current) drug therapy; Z79.82 Long term (current) use of aspirin; Z79.01 Long term (current) use of anticoagulants; Z95.3 Presence of xenogenic heart valve
CPT/HCPCS: 43239; 45378; 88305; J3010

== ENCOUNTER → 2024-08-15 | Outpatient (CLI) | payer BC ==
[~2024-08-15] MED LIST changes: -BUPR-597 PO; +BUPR-766 PO; -NS 1,000 ML IV ONE; +TAMS-18 PO
== END ==
LOC: M WUC 10:05
PROVIDERS: ATTEND Nurse Practitioner Family
DX: Z12.5 Encounter for screening for malignant neoplasm of prostate (principal)

== ENCOUNTER → 2024-08-28 | Outpatient (CLI) | payer BC ==
[2024-08-28 17:47] LABS: BASO # 0.1 10^3/uL (0.0-0.2); BASO % 0.9 % (0.0-1.0); EOS # 0.2 10^3/uL (0.0-0.5); EOS % 2.6 % (0.0-3.0); HEMATOCRIT 39.3 % (42.0-52.0); HEMOGLOBIN 12.8 g/dl (13.5-17.5); LYMPH # 1.1 10^3/uL (1.5-5.0); LYMPH % 19.4 % (24.0-44.0); MEAN CORPUSCULAR HEMOGLOBIN 29.9 pg (27.0-33.0); MEAN CORPUSCULAR HGB CONC 32.6 g/dl (32.0-36.5); MEAN CORPUSCULAR VOLUME 91.8 fl (80.0-96.0); MONO # 0.8 10^3/uL (0.0-0.8); MONO % 13.5 % (2.0-8.0); NEUTROPHILS # 3.7 10^3/uL (1.5-8.5); NEUTROPHILS % 63.1 % (36.0-66.0); PLATELET COUNT, AUTOMATED 218 10^3/uL (150-450); RED BLOOD COUNT 4.28 10^6/uL (4.30-6.10); WHITE BLOOD COUNT 5.8 10^3/uL (4.0-10.0)
[2024-08-28 17:55] LABS: ALBUMIN 3.9 G/DL (3.2-5.2); BILIRUBIN,TOTAL 0.3 MG/DL (0.3-1.2); CALCIUM LEVEL 9.3 MG/DL (8.3-10.6); CHOLESTEROL RISK RATIO 3.07 (<5); CREATININE FOR GFR 1.28 MG/DL (0.70-1.30); GLOMERULAR FILTRATION RATE 62.5 (>49); HDL CHOLESTEROL 42.3 MG/DL (>40); LDL CHOLESTEROL 52.7 MG/DL (<100); NON-HDL-C 87.7 MG/DL; POTASSIUM SERUM 4.5 MMOL/L (3.5-5.1); TOTAL PROTEIN 6.7 G/DL (5.7-8.2)
[2024-08-28 18:11] LABS: HEMOGLOBIN A1c 5.8 % (4.0-6.0)
== END ==
LOC: M WUC 14:10
PROVIDERS: ATTEND Internal Medicine
DX: E78.5 Hyperlipidemia, unspecified (principal); R73.01 Impaired fasting glucose

== ENCOUNTER → 2025-02-27 | Outpatient (CLI) | payer BC ==
[~2025-02-27] MED LIST changes: +PRAV40TA85 PO
== END ==
LOC: M WUC 14:11
PROVIDERS: ATTEND Nurse Practitioner Family
DX: Z12.5 Encounter for screening for malignant neoplasm of prostate (principal)

== ENCOUNTER → 2025-02-27 | Outpatient (CLI) | payer BC ==
[2025-02-27 18:14] LABS: BASO # 0.1 10^3/uL (0.0-0.2); BASO % 0.6 % (0.0-1.0); EOS # 0.2 10^3/uL (0.0-0.5); EOS % 2.7 % (0.0-3.0); LYMPH # 1.7 10^3/uL (1.5-5.0); LYMPH % 21.3 % (24.0-44.0); MONO # 1.1 10^3/uL (0.0-0.8); MONO % 13.7 % (2.0-8.0); NEUTROPHILS # 4.9 10^3/uL (1.5-8.5); NEUTROPHILS % 61.2 % (36.0-66.0); PLATELET COUNT, AUTOMATED 259 10^3/uL (150-450)
[2025-02-27 18:22] LABS: ALT/SGPT 26.0 U/L (7.0-40); AST/SGOT 27.0 U/L (<34); CALCIUM LEVEL 8.7 MG/DL (8.3-10.6); CARBON DIOXIDE LEVEL 32.0 MMOL/L (20-31); CHLORIDE LEVEL 101.0 MMOL/L (98-107); CHOLESTEROL LEVEL 130.0 MG/DL (<200); CHOLESTEROL RISK RATIO 2.77 (<5); CREATININE FOR GFR 1.11 MG/DL (0.70-1.30); GLOMERULAR FILTRATION RATE 74.2 (>49); LDL CHOLESTEROL 53.3 MG/DL (<100); NON-HDL-C 83.1 MG/DL; POTASSIUM SERUM 4.7 MMOL/L (3.5-5.1); SODIUM LEVEL 140.0 MMOL/L (136-145); TRIGLYCERIDES LEVEL 149.0 MG/DL (<150)
[2025-02-27 18:50] LABS: ESTIMATED AVERAGE GLUCOSE 128.0 MG/DL (60-110)
== END ==
LOC: M WUC 14:13
PROVIDERS: ATTEND Internal Medicine
DX: E78.5 Hyperlipidemia, unspecified (principal); I10 Essential (primary) hypertension; R73.01 Impaired fasting glucose